=== PATIENT | female | born 1950 | race Caucasian/White ===

== ENCOUNTER → 2017-02-12 | Outpatient (CLI) | payer OTHER ==
--- NOTE | 2017-02-12 15:46 | MAMMOGRAPHY REPORT ---
BILATERAL DIGITAL SCREENING MAMMOGRAM WITH CAD: 02/12/2017 CLINICAL HISTORY: Routine screening. TECHNIQUE: Bilateral CC and MLO views were obtained. Current study was also evaluated with a Compute r Aided Detection (CAD) system. COMPARISON: Comparison is made to exams dated: 02/08/2016 mammogram, 02/03/2015 mammogram, 08/24/2014 m ammogram, 02/11/2014 mammogram, 02/02/2014 mammogram, and 01/29/2013 mammogram - [facility] enter. BREAST COMPOSITION: There are scattered areas of fibroglandular density in both breasts. FINDINGS: There are benign calcifications in both breasts. There are stable asymmetries in the medi al right breast and lateral left breast. No new suspicious mass, architectural distortion or cluster of microcalcifications is seen. IMPRESSION: ACR BI-RADS CATEGORY 2: BENIGN There is no mammographic evidence of malignancy. A 1 year screening mammogram is recommended. The pa tient will receive written notification of the results. Approximately 10% of breast cancers are not detected with mammography. A negative mammographic report should not delay biopsy if a clinically suggestive mass is present. Ashley Ricketts M.D. ay/:02/12/2017 15:23:11 [employer]: Deejay SERRA(R)(Can), [facility] letter sent: Normal 1/2 BI-RADS Code: ACR BI-RADS Category 2: Benign
== END | disposition home or self-care (01) ==
LOC: C.MAMM 08:51
PROVIDERS: ATTEND Internal Medicine
DX: Z12.31 Encounter for screening mammogram for malignant neoplasm of breast (principal)

== ENCOUNTER 2022-12-24 12:18 | Inpatient (IN) ==
[2022-12-24 13:19] LABS: Basophils # (auto) 0.04 K/uL (0-0.2); Basophils % (auto) 0.5 %; Eosinophils # (auto) 0.16 K/uL (0-0.50); Eosinophils % (auto) 1.9 %; Hematocrit (blood only) 47.1 % (37.0-47.0); Hemoglobin 15.6 g/dl (12.0-16.0); Immature Granulocytes # (auto) 0.02 K/uL (0.01-0.20); Immature Granulocytes % (auto) 0.2 %; Lymphocytes # (auto) 1.51 K/uL (1.2-3.4); Lymphocytes % (auto) 17.7 %; Mean Corpuscular Hemoglobin 32.6 pg (25.0-34.0); Mean Corpuscular Hgb Conc 33.1 g/dL (32.0-36.0); Mean Corpuscular Volume 98.3 fL (80.0-100.0); Mean Platelet Volume 10.5 fL (9.4-12.4); Monocytes # (auto) 0.92 K/uL (0.11-0.59); Monocytes % (auto) 10.8 %; Neutrophils % (auto) 68.9 %; Platelet Count 231 K/uL (130-400); RDW Coefficient of Variation 13.5 % (11.5-14.5); RDW Standard Deviation 49.1 fL (36.4-46.3); Red Blood Count 4.79 M/uL (4.20-5.40); White Blood Count 8.55 K/ul (4.8-10.8)
[2022-12-24 13:27] LABS: INR 0.9 (0.9-1.1); Partial Thromboplastin Ratio 0.9; Partial Thromboplastin Time 25.8 Seconds (21.0-31.0); Prothrombin Time 10.4 Seconds (9.0-12.0)
[2022-12-24 13:29] LABS: Albumin Globulin Ratio 1.2 (0.9-2); Albumin Level 4.7 gm/dl (3.4-5.0); BUN Creatinine Ratio 26.9 (10-20); Bilirubin,Total 0.6 mg/dl (0.2-1.0); Calcium 9.7 mg/dl (8.6-10.3); Creatinine Clr Calc Pharmacy 106.8 ml/min; Est GFR (African American) 110.6 ml/min; Est GFR (Non-African American) 95.5 ml/min; Globulin 3.9 gm/dl (2.5-4.0); Potassium 3.8 mmol/L (3.5-5.1); Total Protein 8.6 gm/dl (6.0-8.3)
[2022-12-24 13:34] LABS: Troponin I High Sensitivity 3.2 pg/ml (0-14)
[2022-12-24 16:11] LABS: Allen Test Pos (Pos); Base Excess ABG 6.6 mEq/L (-9-1.8); HCO3 ABG 32 mmol/L (19-24); Oxygen Saturation ABG 98.7 % (90-95); PCO2 ABG 47 mmHg (35-46); PO2 ABG 94 mmHg (80-95); pH ABG 7.44 (7.35-7.45)
--- NOTE | 2022-12-24 16:16 | XRay Report ---
SINGLE VIEW CHEST CLINICAL HISTORY: Dyspnea. FINDINGS: An AP, portable, upright chest radiograph is compared to study dated 06/05/2019. The heart a ppears enlarged and noting atherosclerotic calcification of the thoracic aorta. The pulmonary vascula ture is noncongested. Chronic interstitial thickening is similar to previous.. There is chronic eleva tion of the left hemidiaphragm which is similar to the 06/05/2019 examination. A left pleural effusion is not excluded. There is bibasilar scarring/atelectasis. No airspace consolidation is seen typical for pneumonia. No pneumothorax is seen. The skeletal structures are osteopenic. There are chronic/hea led left-sided rib fractures. IMPRESSION: 1. Cardiomegaly with no acute cardiopulmonary abnormality identified. 2. There is chronic elevation of the left hemidiaphragm. A left pleural effusion is not excluded. Fin dings are unchanged from the 06/05/2019 examination. ACT 112: Negative or not required by law. Electronically signed by: Adrian Ornelas M.D. 12/24/2022 4:13 PM
[2022-12-24] MEDS ORDERED: IOVERSOL 350 MG 125mL Prefilled Syringe IV ONE (17:14)
--- NOTE | 2022-12-24 17:23 | CT Scan Report ---
CT SCAN OF THE BRAIN WITHOUT IV CONTRAST CLINICAL HISTORY: Generalized weakness. COMPARISON STUDY: MRI of the brain dated 06/05/2019. TECHNIQUE: Unenhanced axial CT scan of the brain is performed from the vertex to the skull base. A do se lowering technique was utilized adhering to the principles of ALARA. FINDINGS: Brain parenchyma: There is age-related involutional change noting minimal microangiopathic disease. T here is no hemorrhage, mass effect, or evidence of acute territorial ischemia by CT criteria. Gillis-wh ite matter differentiation is preserved. No extra-axial fluid collection is seen. Ventricles, sulci, cisterns: Prominent secondary to involutional change. Intracranial vasculature: There is atherosclerotic calcification of the cavernous carotid arteries. Calvarium: Unremarkable. Sinuses and mastoids: The visualized paranasal sinuses are clear. The mastoid air cells are well pneu matized. Orbits: The bony orbits are grossly intact. IMPRESSION: There is no hemorrhage, mass effect, or evidence of acute territorial ischemia by CT dony maravilla. ACT 112: Negative or not required by law. Electronically signed by: Adrian Ornelas M.D. 12/24/2022 5:21 PM
--- NOTE | 2022-12-24 18:17 | CT Scan Report ---
CT ANGIOGRAM OF THE CHEST CLINICAL HISTORY: Atypical chest pain. Dyspnea. COMPARISON STUDY: Chest x-ray dated 12/24/2022. TECHNIQUE: Following the IV administration of 116 cc of Optiray 350, CT angiogram of the chest was pe rformed from the upper abdomen to the thoracic inlet utilizing the pulmonary embolus protocol. Images are reviewed in the axial, sagittal, and coronal planes. 3-D MIPS images are created and assessed. I V contrast was administered without complication. A dose lowering technique was utilized adhering to the principles of ALARA. CT DOSE: 1416.52 mGy.cm FINDINGS: Thyroid: Mildly enlarged and heterogeneous. Thoracic aorta: There is moderate atherosclerotic calcification of the thoracic aorta, which is masood l in caliber and demonstrates standard 3-vessel arch anatomy. No dissection is seen. Pulmonary vasculature: The main pulmonary arteries are mildly dilated suggesting pulmonary artery hyp ertension. There are no filling defects identified in main, lobar, or proximal segmental pulmonary br anches to suggest pulmonary embolus. Evaluation of the peripheral branches is degraded by motion keshav fact. Heart: The heart is mildly enlarged and without pericardial effusion. There are coronary artery calci fications. Lungs and pleural spaces: Evaluation of the lung parenchyma is degraded by motion artifact. There is atelectasis of the left lower lung. No airspace consolidation clinical history pneumonia or pleural e ffusion is identified. The trachea and central airways are clear. Scarring/atelectasis is also seen a t the right lung base. There is a 1.3 cm right middle lobe nodule suggested on image #89. Mediastinum: There is no mediastinal lymphadenopathy. Mary: Clear. Axillae: There is no axillary lymphadenopathy. Upper abdomen: There is marked elevation of the left hemidiaphragm versus diaphragmatic herniation, w ith bowel contents filling the majority of the left hemithorax. This is radiographically unchanged da ting back to at least 2020. There is diverticulosis of the visualized left colon. A normal spleen is not identified and there are large splenules in the left upper quadrant. These measure up to 4.5 cm. Skeletal structures: The skeletal structures are osteopenic. No lytic or blastic bony lesions are see n. There is chronic deformity of the left-sided ribs. Arthritic change is noted in the shoulders. The re is a chronic-appearing compression deformity of T11. Spondylotic change is seen in the thoracic sp ine. IMPRESSION: 1. There is no evidence of pulmonary embolus in the main, lobar, or proximal segmental pulmonary tracy lisandra. Evaluation of the peripheral branches is compromised by motion artifact. 2. There is marked elevation of the left hemidiaphragm versus diaphragmatic defect/hernia with abdomi nal contents filling the lower thorax and atelectasis of the left lower lung. This is unchanged datin g back to at least 2019. A normal spleen is not identified, there is deformity of the left-sided ribs , and there may have been previous left lower lobe resection. Correlation with the clinical and surgi marion history will be essential. 3. There is no airspace consolidation typical for pneumonia or pleural effusion. 4. A 1.3 cm right middle lobe nodule is suggested. Follow-up is recommended as per the Fleischner cri teria. See below. 5. Mild cardiomegaly. 6. Additional findings as above. Please refer to below summary of Fleischner criteria recommendations for follow-up of incidental CT n odules (Megan Valentine, Guidelines for management of small pulmonary nodules detected on CT scans: A sta tement from the Fleischner Society, Radiology 237: [phone].) SOLID NODULES Solitary nodule size: <6 mm * low risk patients: no follow-up needed * high risk patients: optional CT at 12 months Solitary nodule size: 6-8 mm * low risk patients: follow-up at 6-12 months, then consider further follow-up at 18-24 months * high risk patients: initial follow-up CT at 6-12 months and then at 18-24 months if no change Solitary nodule size: >8 mm * either low or high risk patients - consider follow-up CT at 3 months, and/or CT-PET, and/or biopsy Multiple nodules size: <6 mm * low risk patients: no routine follow-up * high risk patients: optional CT at 12 months Multiple nodules size: 6-8 mm * low risk patients: follow-up at 3-6 months, then consider further follow-up at 18-24 months * high risk patients: follow-up at 3-6 months, then at 18-24 months if no change Multiple nodules size: >8 mm * low risk patients: follow-up at 3-6 months, then consider further follow-up at 18-24 months * high risk patients: follow-up at 3-6 months, then at 18-24 months if no change Note: newly detected indeterminate nodule in persons 35 years of age or older. * low risk patients: minimal or absent history of smoking and/or other known risk factors * high risk patients: history of smoking or of other known risk factors (e.g. first degree relative with lung cancer, or exposure to asbestos, radon, uranium) * if a nodule up to 8 mm is partly solid or is ground glass further follow-up is required after 24 m onths to exclude possible slow growing adenocarcinoma (KATE) SUBSOLID NODULES Solitary pure ground-glass nodule * nodule size <6 mm - no CT follow-up required * nodule size >=6 mm - follow-up CT at 6-12 months, then every 2 years until 5 years Solitary part-solid nodule * nodule size <6 mm - no CT follow-up required * nodule size >=6 mm - follow-up CT at 3-6 months. If unchanged, and solid component remains <6 mm, then annual follow-up for 5 years Multiple subsolid nodules * nodule size <6 mm - follow-up CT at 3-6 months, consider further follow-up at 2 and 4 years if sta ble * nodule size >=6 mm - follow-up CT at 3-6 months, subsequent management based on the most suspiciou s nodule(s) ACT 112: Positive. There are findings on this exam that require communication between the performing entity and the patient following Patient Test Result Information Act ([place] Act 112) guidelines. Electronically signed by: Adrian Ornelas M.D. 12/24/2022 6:15 PM
--- NOTE | 2022-12-24 18:58 | Emergency Department Note ---
History of Present Illness General Chief complaint: Vertigo Stated complaint: LIGHT HEADED, FATIGUE, NAUSEA Time Seen by Provider: 12/24/22 15:25 History of Present Illness Provider complaint: Dizziness palpitations fatigue Onset (ago): month(s) 1 72-year-old female presents emergency department for dizziness palpitations and fatigue. Patient reports her symptoms are gone for the last month. She reports no chest pain. No headache. No recent travel. No exogenous hormone usage. No hemoptysis. No melena or hematochezia. No abdominal pain. Home Medications Medication Instructions Recorded Confirmed Type albuterol sulfate 90 mcg/actuation 1 - 2 puff inhalation Q6H PRN 06/05/19 History aerosol inhaler (Ventolin HFA) Shortness Of Breath Or Wheezing aspirin 81 mg tablet,delayed 81 mg PO QAM 06/05/19 12/24/22 History release cholecalciferol (vitamin D3) 25 1,000 unit PO QAM 06/05/19 12/24/22 History mcg (1,000 unit) tablet (Vitamin D3) lisinopril 10 0.5 tab PO HS 06/05/19 12/24/22 History mg-hydrochlorothiazide 12.5 mg tablet (Zestoretic) metformin 500 mg tablet 500 mg PO BID 06/05/19 12/24/22 History (Glucophage) simvastatin 40 mg tablet (Zocor) 40 mg PO HS 06/05/19 12/24/22 History venlafaxine 75 mg capsule,extended 75 mg PO QAM 06/05/19 12/24/22 History release 24 hr (Effexor XR) acetaminophen 500 mg tablet 500 mg PO Q6H PRN Pain 07/13/19 12/24/22 History (Tylenol Extra Strength) Allergies Allergy/AdvReac Type Severity Reaction Status Date / Time codeine AdvReac Intermediate Nausea Unverified 07/13/19 14:30 Past Med/Surg History Medical History Diabetes HLD (hyperlipidemia) HTN (hypertension) Family History Other No pertinent family history Social History Smoking Status: Never smoker Preferred Language: Ivorian Feels Safe at Home: Yes Physical Exam Vital Signs Vital Signs - 24 hr 12/24/22 12:35 12/24/22 15:53 12/24/22 16:05 Temperature 36.5 C Temperature Source Temporal Artery Scan Pulse Rate 98 H 91 H Pulse Rate [Apical] 91 H Pulse Rhythm Regular Respiratory Rate 20 16 Respiratory Effort / Characteristics Non-Labored Spontaneous Respiratory Depth Normal Blood Pressure 166/87 H Blood Pressure [Left Arm] 155/74 H Blood Pressure Mean 113 Blood Pressure Mean [Left Arm] 101 Pulse Oximetry 97 85 L Oxygen Delivery Method Room Air Room Air Oxygen Flow Rate Sepsis Recent Fever Within 48 Hours No Sepsis New/Unexplained Change in Mental Status No Sepsis Action Taken by Nursing No Action Required 12/24/22 16:06 Temperature Temperature Source Pulse Rate 90 Pulse Rate [Apical] Pulse Rhythm Respiratory Rate Respiratory Effort / Characteristics Respiratory Depth Blood Pressure Blood Pressure [Left Arm] Blood Pressure Mean Blood Pressure Mean [Left Arm] Pulse Oximetry 97 Oxygen Delivery Method Nasal Cannula Oxygen Flow Rate 3 Sepsis Recent Fever Within 48 Hours Sepsis New/Unexplained Change in Mental Status Sepsis Action Taken by Nursing Physical Exam GENERAL: oriented to person, place, and time. appears well-developed and well- nourished. HENT: Exam performed. - Head: Normocephalic and atraumatic. EYES: Conjunctivae and EOM are normal. Right eye exhibits no discharge. Left eye exhibits no discharge. No scleral icterus. NECK: Normal range of motion. Neck supple. No JVD present. CV: Normal rate, regular rhythm, normal heart sounds and intact distal pulses. There is no peripheral edema. Palpable radial pulses bue. PULM/CHEST: Diminished left-sided breath sounds. ABD: The abdomen is soft. There is no tenderness. NEURO: Motor and sensation grossly intact. SKIN: Skin is warm and dry. He is not diaphoretic. PSYCH: normal mood and affect. Behavior is normal. Judgment and thought content normal. Course Course 1525: The patient was evaluated in room B11B. A complete history and physical exam was performed Cardiac monitoring: An order was placed for continuous cardiac monitoring. The monitor shows a rate of 90 with sinus rhythm interpreted by me 1605: Patient became hypoxic on room air. Supplemental oxygen applied via nasal cannula which improved the patient's oxygen saturation. Chest x-ray reviewed by me shows cardiomegaly with cardiomegaly and a white out potion of the left lower lung. Patient is now stating that she had a surgery done as a child which she is not sure what for if was to help her diaphragm or remove part of her lung. There is no significant change in the chest x-ray from June 05, 2019. Will obtain CTA of the chest to rule out PE given the patient's new onset hypoxia. 183: Vital signs stable on supplemental oxygen via nasal cannula. Labs within normal limits. Imaging shows no infiltrate no PE. Patient will be admitted to the [facility] team for work-up of hypoxia. Spoke with Sharmaine Huynh who stated to admit to Dr. Ye Administered Medications Discontinued Medications Ioversol (Ioversol 350 Mg 125ml Prefilled Syringe) 116 ml IV ONCE ONE Stop: 12/24/22 17:15 Last Admin: 12/24/22 17:14 Dose: 116 ml Documented By: MAURA Critical Care Time Critical Care Time: Yes Total Critical Care Time: 45 I have personally spent greater than 45 minutes of critical care time in the direct management of this patient. This includes bedside care, interpretation of diagnostic studies, and testing, discussion with consultants, patient, and family members, and other required patient management activities. This 45 minutes is in excess of all separately billable procedures. Medical Decision Making Laboratory Data Attestation: I reviewed the patient's lab results. 12/24/22 12:55 12/24/22 12:55 Lab Results 12/24/22 12/24/22 12/24/22 Range/Units 12:55 12:55 12:55 WBC 8.55 (4.8-10.8) K/ul RBC 4.79 (4.20-5.40) M/uL Hgb 15.6 (12.0-16.0) g/dl Hct 47.1 H (37.0-47.0) % MCV 98.3 (80.0-100.0) fL MCH 32.6 (25.0-34.0) pg MCHC 33.1 (32.0-36.0) g/dL RDW Std Deviation 49.1 H (36.4-46.3) fL RDW Coeff of Hussein 13.5 (11.5-14.5) % Plt Count 231 (130-400) K/uL MPV 10.5 (9.4-12.4) fL Immature Gran % (Auto) 0.2 % Neut % (Auto) 68.9 % Lymph % (Auto) 17.7 % [place] % (Auto) 10.8 % Eos % (Auto) 1.9 % Baso % (Auto) 0.5 % Neut # (Auto) 5.90 (1.40-6.50) K/uL Lymph # (Auto) 1.51 (1.2-3.4) K/uL [place] # (Auto) 0.92 H (0.11-0.59) K/uL Eos # (Auto) 0.16 (0-0.50) K/uL Baso # (Auto) 0.04 (0-0.2) K/uL Immature Gran # (Auto) 0.02 (0.01-0.20) K/uL PT 10.4 (9.0-12.0) Seconds INR 0.9 (0.9-1.1) APTT 25.8 (21.0-31.0) Seconds PTT Ratio 0.9 ABG pH (7.35-7.45) ABG pCO2 (35-46) mmHg ABG pO2 (80-95) mmHg ABG HCO3 (19-24) mmol/L ABG O2 Saturation (90-95) % ABG Base Excess (-9-1.8) mEq/L Jean-Claude Test (Pos) Oxygen Given Sodium 140 (136-145) mmol/L Potassium 3.8 (3.5-5.1) mmol/L Chloride 102 (98-107) mmol/L Carbon Dioxide 30 (21-32) mmol/L Anion Gap 8 (3-11) BUN 14 (6-23) mg/dl Creatinine 0.52 L (0.6-1.2) mg/dl Est Cr Clr Drug Dosing 106.8 ml/min Est GFR ( Amer) 110.6 ml/min Est GFR (Non-Af Amer) 95.5 ml/min BUN/Creatinine Ratio 26.9 H (10-20) Glucose 100 H (70-99(Fasting)) mg/dl Calcium 9.7 (8.6-10.3) mg/dl Total Bilirubin 0.6 (0.2-1.0) mg/dl AST 18 (13-39) U/L ALT 12 (7-52) U/L Alkaline Phosphatase 46 (34-104) U/L Troponin I High Sens 3.2 (0-14) pg/ml Total Protein 8.6 H (6.0-8.3) gm/dl Albumin 4.7 (3.4-5.0) gm/dl Globulin 3.9 (2.5-4.0) gm/dl Albumin/Globulin Ratio 1.2 (0.9-2) SARS-CoV-2, RNA, NAAT (NEGATIVE) 12/24/22 12/24/22 Range/Units 15:55 Unknown WBC (4.8-10.8) K/ul RBC (4.20-5.40) M/uL Hgb (12.0-16.0) g/dl Hct (37.0-47.0) % MCV (80.0-100.0) fL MCH (25.0-34.0) pg MCHC (32.0-36.0) g/dL RDW Std Deviation (36.4-46.3) fL RDW Coeff of Hussein (11.5-14.5) % Plt Count (130-400) K/uL MPV (9.4-12.4) fL Immature Gran % (Auto) % Neut % (Auto) % Lymph % (Auto) % [place] % (Auto) % Eos % (Auto) % Baso % (Auto) % Neut # (Auto) (1.40-6.50) K/uL Lymph # (Auto) (1.2-3.4) K/uL [place] # (Auto) (0.11-0.59) K/uL Eos # (Auto) (0-0.50) K/uL Baso # (Auto) (0-0.2) K/uL Immature Gran # (Auto) (0.01-0.20) K/uL PT (9.0-12.0) Seconds INR (0.9-1.1) APTT (21.0-31.0) Seconds PTT Ratio ABG pH 7.44 (7.35-7.45) ABG pCO2 47 H (35-46) mmHg ABG pO2 94 (80-95) mmHg ABG HCO3 32 H (19-24) mmol/L ABG O2 Saturation 98.7 H (90-95) % ABG Base Excess 6.6 H (-9-1.8) mEq/L Jean-Claude Test Pos (Pos) Oxygen Given 4L Sodium (136-145) mmol/L Potassium (3.5-5.1) mmol/L Chloride (98-107) mmol/L Carbon Dioxide (21-32) mmol/L Anion Gap (3-11) BUN (6-23) mg/dl Creatinine (0.6-1.2) mg/dl Est Cr Clr Drug Dosing ml/min Est GFR ( Amer) ml/min Est GFR (Non-Af Amer) ml/min BUN/Creatinine Ratio (10-20) Glucose (70-99(Fasting)) mg/dl Calcium (8.6-10.3) mg/dl Total Bilirubin (0.2-1.0) mg/dl AST (13-39) U/L ALT (7-52) U/L Alkaline Phosphatase (34-104) U/L Troponin I High Sens (0-14) pg/ml Total Protein (6.0-8.3) gm/dl Albumin (3.4-5.0) gm/dl Globulin (2.5-4.0) gm/dl Albumin/Globulin Ratio (0.9-2) SARS-CoV-2, RNA, NAAT NEGATIVE (NEGATIVE) Imaging Data Attestation: I personally reviewed and interpreted this imaging study as follows: My Impression: Chest x-ray reviewed by me shows cardiomegaly with cardiomegaly and a white out potion of the left lower lung. There is no significant change in the chest x- ray from June 05, 2019. Radiologist's Impression: Chest CTA 12/24/22 15:42 CT ANGIOGRAM OF THE CHEST CLINICAL HISTORY: Atypical chest pain. Dyspnea. COMPARISON STUDY: Chest x-ray dated 12/24/2022. TECHNIQUE: Following the IV administration of 116 cc of Optiray 350, CT angiog jacinta of the chest was performed from the upper abdomen to the thoracic inlet utilizing the pulmonary embolus protocol. Images are reviewed in the axial, sagittal, and coronal planes. 3-D MIPS images are created and assessed. IV contrast was administered without complication. A dose lowering technique was utilized adhering to the principles of ALARA. CT DOSE: 1416.52 mGy.cm FINDINGS: Thyroid: Mildly enlarged and heterogeneous. Thoracic aorta: There is moderate atherosclerotic calcification of the thoracic aorta, which is normal in caliber and demonstrates standard 3-vessel arch anatomy. No dissection is seen. Pulmonary vasculature: The main pulmonary arteries are mildly dilated suggesting pulmonary artery hypertension. There are no filling defects identified in main, lobar, or proximal segmental pulmonary branches to suggest pulmonary embolus. Evaluation of the peripheral branches is degraded by motion artifact. Heart: The heart is mildly enlarged and without pericardial effusion. There are coronary artery calcifications. Lungs and pleural spaces: Evaluation of the lung parenchyma is degraded by motion artifact. There is atelectasis of the left lower lung. No airspace consolidation clinical history pneumonia or pleural effusion is identified. The trachea and central airways are clear. Scarring/atelectasis is also seen at the right lung base. There is a 1.3 cm right middle lobe nodule suggested on image #89. Mediastinum: There is no mediastinal lymphadenopathy. Mary: Clear. Axillae: There is no axillary lymphadenopathy. Upper abdomen: There is marked elevation of the left hemidiaphragm versus diaphragmatic herniation, with bowel contents filling the majority of the left hemithorax. This is radiographically unchanged dating back to at least 2019. There is diverticulosis of the visualized left colon. A normal spleen is not identified and there are large splenules in the left upper quadrant. These measure up to 4.5 cm. Skeletal structures: The skeletal structures are osteopenic. No lytic or blastic bony lesions are seen. There is chronic deformity of the left-sided ribs. Arthritic change is noted in the shoulders. There is a chronic-appearing compression deformity of T11. Spondylotic change is seen in the thoracic spine. IMPRESSION: 1. There is no evidence of pulmonary embolus in the main, lobar, or proximal segmental pulmonary arteries. Evaluation of the peripheral branches is compro mised by motion artifact. 2. There is marked elevation of the left hemidiaphragm versus diaphragmatic defect/hernia with abdominal contents filling the lower thorax and atelectasis of the left lower lung. This is unchanged dating back to at least 2019. A normal spleen is not identified, there is deformity of the left-sided ribs, and there may have been previous left lower lobe resection. Correlation with the clinical and surgical history will be essential. 3. There is no airspace consolidation typical for pneumonia or pleural effusion. 4. A 1.3 cm right middle lobe nodule is suggested. Follow-up is recommended as p er the Fleischner criteria. See below. 5. Mild cardiomegaly. 6. Additional findings as above. Please refer to below summary of Fleischner criteria recommendations for follow- up of incidental CT nodules (Megan Valentine, Guidelines for management of small pulmonary nodules detected on CT scans: A statement from the Fleischner Society, Radiology 237: [phone].) SOLID NODULES Solitary nodule size: <6 mm * low risk patients: no follow-up needed * high risk patients: optional CT at 12 months Solitary nodule size: 6-8 mm * low risk patients: follow-up at 6-12 months, then consider further follow-up at 18-24 months * high risk patients: initial follow-up CT at 6-12 months and then at 18-24 months if no change Solitary nodule size: >8 mm * either low or high risk patients - consider follow-up CT at 3 months, and/or CT-PET, and/or biopsy Multiple nodules size: <6 mm * low risk patients: no routine follow-up * high risk patients: optional CT at 12 months Multiple nodules size: 6-8 mm * low risk patients: follow-up at 3-6 months, then consider further follow-up at 18-24 months * high risk patients: follow-up at 3-6 months, then at 18-24 months if no change Multiple nodules size: >8 mm * low risk patients: follow-up at 3-6 months, then consider further follow-up at 18-24 months * high risk patients: follow-up at 3-6 months, then at 18-24 months if no change Note: newly detected indeterminate nodule in persons 35 years of age or older. * low risk patients: minimal or absent history of smoking and/or other known risk factors * high risk patients: history of smoking or of other known risk factors (e.g. first degree relative with lung cancer, or exposure to asbestos, radon, uranium) * if a nodule up to 8 mm is partly solid or is ground glass further follow-up is required after 24 months to exclude possible slow growing adenocarcinoma (KATE) SUBSOLID NODULES Solitary pure ground-glass nodule * nodule size <6 mm - no CT follow-up required * nodule size >=6 mm - follow-up CT at 6-12 months, then every 2 years until 5 years Solitary part-solid nodule * nodule size <6 mm - no CT follow-up required * nodule size >=6 mm - follow-up CT at 3-6 months. If unchanged, and solid component remains <6 mm, then annual follow-up for 5 years Multiple subsolid nodules * nodule size <6 mm - follow-up CT at 3-6 months, consider further follow-up at 2 and 4 years if stable * nodule size >=6 mm - follow-up CT at 3-6 months, subsequent management based on the most suspicious nodule(s) ACT 112: Positive. There are findings on this exam that require communication between the performing entity and the patient following Patient Test Result Information Act ([place] Act 112) guidelines. Electronically signed by: Adrian Ornelas M.D. 12/24/2022 6:15 PM Chest X-Ray 12/24/22 15:42 SINGLE VIEW CHEST CLINICAL HISTORY: Dyspnea. FINDINGS: An AP, portable, upright chest radiograph is compared to study dated 06/05/2019. The heart appears enlarged and noting atherosclerotic calcification of the thoracic aorta. The pulmonary vasculature is noncongested. Chronic interstitial thickening is similar to previous.. There is chronic elevation of the left hemidiaphragm which is similar to the 06/05/2019 examination. A left pleural effusion is not excluded. There is bibasilar scarring/atelectasis. No airspace consolidation is seen typical for pneumonia. No pneumothorax is seen. The skeletal structures are osteopenic. There are chronic/healed left-sided rib fractures. IMPRESSION: 1. Cardiomegaly with no acute cardiopulmonary abnormality identified. 2. There is chronic elevation of the left hemidiaphragm. A left pleural effusion is not excluded. Findings are unchanged from the 06/05/2019 examination. ACT 112: Negative or not required by law. Electronically signed by: Adrian Ornelas M.D. 12/24/2022 4:[address] 12/24/22 15:42 CT SCAN OF THE BRAIN WITHOUT IV CONTRAST CLINICAL HISTORY: Generalized weakness. COMPARISON STUDY: MRI of the brain dated 06/05/2019. TECHNIQUE: Unenhanced axial CT scan of the brain is performed from the vertex to the skull base. A dose lowering technique was utilized adhering to the principles of ALARA. FINDINGS: Brain parenchyma: There is age-related involutional change noting minimal microangiopathic disease. There is no hemorrhage, mass effect, or evidence of acute territorial ischemia by CT criteria. Gillis-white matter differentiation is preserved. No extra-axial fluid collection is seen. Ventricles, sulci, cisterns: Prominent secondary to involutional change. Intracranial vasculature: There is atherosclerotic calcification of the cavernous carotid arteries. Calvarium: Unremarkable. Sinuses and mastoids: The visualized paranasal sinuses are clear. The mastoid air cells are well pneumatized. Orbits: The bony orbits are grossly intact. IMPRESSION: There is no hemorrhage, mass effect, or evidence of acute territorial ischemia by CT criteria. ACT 112: Negative or not required by law. Electronically signed by: Adrian Ornelas M.D. 12/24/2022 5:21 PM ECG Data Attestation: I personally reviewed and interpreted this ECG as follows: Rate (beats per minute): 97 Rhythm: + normal sinus ECG Intervals/blocks: + Normal OK and + Normal QT-c ECG ST segments: + Normal ST segments Additional Comments: QRS 78 MDM Narrative 1525: The patient was evaluated in room B11B. A complete history and physical exam was performed Cardiac monitoring: An order was placed for continuous cardiac monitoring. The monitor shows a rate of 90 with sinus rhythm interpreted by me 1605: Patient became hypoxic on room air. Supplemental oxygen applied via nasal cannula which improved the patient's oxygen saturation. Chest x-ray reviewed by me shows cardiomegaly with cardiomegaly and a white out potion of the left lower lung. Patient is now stating that she had a surgery done as a child which she is not sure what for if was to help her diaphragm or remove part of her lung. There is no significant change in the chest x-ray from June 05, 2019. Will obtain CTA of the chest to rule out PE given the patient's new onset hypoxia. 1835: Vital signs stable on supplemental oxygen via nasal cannula. Labs within normal limits. Imaging shows no infiltrate no PE. Patient will be admitted to the [facility] team for work-up of hypoxia. Spoke with Sharmaine Huynh who stated to admit to Dr. Ye Impression & Plan Hypoxia Discharge Plan Visit Data Chief Complaint: Vertigo Stated Complaint: LIGHT HEADED, FATIGUE, NAUSEA ED Provider: Richi Siddiqui Discharge Problem: Hypoxia Patient Disposition: Admitted As Inpatient Forms Stand Alone Forms: [facility] Prescriptions Prescriptions: No Action metformin [Glucophage] 500 mg tablet 500 mg PO BID venlafaxine [Effexor XR] 75 mg capsule,extended release 24hr 75 mg PO QAM aspirin 81 mg Tablet,Delayed Release (Dr/Ec) 81 mg PO QAM simvastatin [Zocor] 40 mg tablet 40 mg PO HS lisinopril-hydrochlorothiazide [Zestoretic] 10-12.5 mg tablet 0.5 tab PO HS albuterol sulfate [Ventolin HFA] 90 mcg/actuation HFA aerosol inhaler 1 - 2 puff INHALATION Q6H PRN (Reason: Shortness Of Breath Or Wheezing) cholecalciferol (vitamin D3) [Vitamin D3] 25 mcg (1,000 unit) Tablet 1,000 unit PO QAM acetaminophen [Tylenol Extra Strength] 500 mg Tablet 500 mg PO Q6H PRN (Reason: Pain) Referrals Referrals: Solitario Grant MD [Primary Care Provider] -
--- NOTE | 2022-12-24 19:18 | History & Physical Report ---
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 Noted to be hypoxic at 85% in ED, now 95% on 3L NC No history of asthma, COPD, non-smoker. 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 Evaluation of the peripheral branches is compromised by motion artifact. * There is marked elevation of the left hemidiaphragm versus diaphragmatic defect/hernia with abdominal contents filling the lower thorax and atelectasis of the left lower lung. This is unchanged dating back to at least 2019 * A 1.3 cm right middle lobe nodule is suggested. Follow-up is recommended as per the Fleischner criteria. See below. 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 Ye. Please see addendum. 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 Feels lightheaded with positional change, specifically when she bends down to reach for something. Is relieved at rest. Associated with nausea but no vomiting. No room spinning. History of vertigo in the past but that felt more like acute episodes and this feels more ongoing. Having light sensitivity more since cataracts surgery in 2020 but denies any other eye symptoms like decreased vision or double vision. Denies any previous diagnosis of hypoxia or chronic lung conditions such as asthma or COPD. Lifelong non-smoker. Recent O2 levels at doctor visits were 88-92%. History of operation on diaphragm is a 6-week-old but does not know additional information. Denies any issues with low oxygen since then. No fever, chills, recent illness, headache, chest pain, shortness of breath, wheezing, vomiting, abdominal pain, dysuria, diarrhea or constipation. Allergies Allergy/AdvReac Type Severity Reaction Status Date / Time codeine AdvReac Intermediate Nausea Unverified 07/13/19 14:30 Home Medications Medication Instructions Recorded Confirmed Type albuterol sulfate 90 mcg/actuation 1 - 2 puff inhalation Q6H PRN 06/05/19 12/24/22 History aerosol inhaler (Ventolin HFA) Shortness Of Breath Or Wheezing aspirin 81 mg tablet,delayed 81 mg PO QAM 06/05/19 12/24/22 History release cholecalciferol (vitamin D3) 25 1,000 unit PO QAM 06/05/19 12/24/22 History mcg (1,000 unit) tablet (Vitamin D3) lisinopril 10 0.5 tab PO HS 06/05/19 12/24/22 History mg-hydrochlorothiazide 12.5 mg tablet (Zestoretic) metformin 500 mg tablet 500 mg PO BID 06/05/19 12/24/22 History (Glucophage) simvastatin 40 mg tablet (Zocor) 40 mg PO HS 06/05/19 12/24/22 History venlafaxine 75 mg capsule,extended 75 mg PO QAM 06/05/19 12/24/22 History release 24 hr (Effexor XR) acetaminophen 500 mg tablet 500 mg PO Q6H PRN Pain 07/13/19 12/24/22 History (Tylenol Extra Strength) Past Med/Surg History Medical History (Updated 12/24/22 @ 20:10 by Sharmaine Huynh PA-C) Anxiety Chronically elevated hemidiaphragm DM (diabetes mellitus), type 2 History of gastritis HLD (hyperlipidemia) HTN (hypertension) Surgical History (Updated 12/24/22 @ 20:05 by Sharmaine Huynh PA-C) History of congenital diaphragmatic hernia s/p repair at 6 wks old History of mandibular surgery Family History (Updated 12/24/22 @ 20:05 by Sharmaine Huynh PA-C) Other Diabetes Hypertension Social History Smoking Status: Never smoker Hx Alcohol Use: No Hx Substance Use: No Preferred Language: Spanish Communication Ability: Effective Rn Occupational Required: No Beliefs That Will Affect Care: None Current Living Situation: Spouse Other Information That Helps Us Care for You: No Feels Safe at Home: Yes Safety Concerns: Feels Safe At This Time Review of Systems Review of Systems: At least ten systems reviewed and negative except as noted in the HPI. Physical Exam Physical Exam: General Appearance: WD/WN, vitals as above, NAD, sitting up in bed, pleasant, conversing easily Head: normocephalic, atraumatic Eyes: normal inspection, PERRL, conjunctivae normal, anicteric sclerae ENT: external ear and nose normal, oropharynx normal Neck: normal visual inspection, trachea midline, no thyromegaly Respiratory: normal respiratory effort, decreased breath sounds bilateral bases L>R,no wheeze, rhonchi. No accessory muscle use Cardiovascular: regular rate, rhythm, no murmur, normal peripheral pulses, no BLE edema. Vessels: no JVD Chest: normal inspection of chest Abdomen/GI: normal bowel sounds, soft, nontender, no hepatosplenomegaly Extremities/Musculoskeletal: no cyanosis or clubbing, extremities motor strength 5/5 Neurologic: PERRL, EOMI, accommodation nl, no face palsy, no dysarthria, CN's II-XI intact bilaterally and moves all extremities Psychiatric: A+Ox3, euthymic affect Skin: no rashes, normal color, warm/dry Results & Data Results & Data Vital Signs (Past 12 Hours) Vital Signs Temp Pulse Pulse Resp BP BP Pulse Ox 12/24/22 19:03 84 20 147/81 H 95 12/24/22 16:06 90 97 12/24/22 16:05 91 H 16 155/74 H 85 L 12/24/22 15:53 91 H 12/24/22 12:35 36.5 C 98 H 20 166/87 H 97 O2 Del Method O2 Flow Rate 12/24/22 19:03 Nasal Cannula 3 12/24/22 16:06 Nasal Cannula 3 12/24/22 16:05 Room Air 12/24/22 15:53 12/24/22 12:35 Room Air Laboratory Results Short CBC 12/24/22 Range/Units 12:55 WBC 8.55 (4.8-10.8) K/ul Hgb 15.6 (12.0-16.0) g/dl Hct 47.1 H (37.0-47.0) % Plt Count 231 (130-400) K/uL BMP 12/24/22 12:55 Sodium 140 Potassium 3.8 Chloride 102 Carbon Dioxide 30 BUN 14 Creatinine 0.52 L Glucose 100 H Calcium 9.7 Liver Function 12/24/22 Range/Units 12:55 Total Bilirubin 0.6 (0.2-1.0) mg/dl AST 18 (13-39) U/L ALT 12 (7-52) U/L Alkaline Phosphatase 46 (34-104) U/L Albumin 4.7 (3.4-5.0) gm/dl Diagnostic Findings Chest CTA 12/24/22 15:42 CT ANGIOGRAM OF THE CHEST CLINICAL HISTORY: Atypical chest pain. Dyspnea. COMPARISON STUDY: Chest x-ray dated 12/24/2022. TECHNIQUE: Following the IV administration of 116 cc of Optiray 350, CT angiogram of the chest was performed from the upper abdomen to the thoracic inlet utilizing the pulmonary embolus protocol. Images are reviewed in the axial, sagittal, and coronal planes. 3-D MIPS images are created and assessed. IV contrast was administered without complication. A dose lowering technique was utilized adhering to the principles of ALARA. CT DOSE: 1416.52 mGy.cm FINDINGS: Thyroid: Mildly enlarged and heterogeneous. Thoracic aorta: There is moderate atherosclerotic calcification of the thoracic aorta, which is normal in caliber and demonstrates standard 3-vessel arch anatomy. No dissection is seen. Pulmonary vasculature: The main pulmonary arteries are mildly dilated suggesting pulmonary artery hypertension. There are no filling defects identified in main, lobar, or proximal segmental pulmonary branches to suggest pulmonary embolus. Evaluation of the peripheral branches is degraded by motion artifact. Heart: The heart is mildly enlarged and without pericardial effusion. There are coronary artery calcifications. Lungs and pleural spaces: Evaluation of the lung parenchyma is degraded by motion artifact. There is atelectasis of the left lower lung. No airspace consolidation clinical history pneumonia or pleural effusion is identified. The trachea and central airways are clear. Scarring/atelectasis is also seen at the right lung base. There is a 1.3 cm right middle lobe nodule suggested on image #89. Mediastinum: There is no mediastinal lymphadenopathy. Mary: Clear. Axillae: There is no axillary lymphadenopathy. Upper abdomen: There is marked elevation of the left hemidiaphragm versus diaphragmatic herniation, with bowel contents filling the majority of the left hemithorax. This is radiographically unchanged dating back to at least 2019. There is diverticulosis of the visualized left colon. A normal spleen is not id entified and there are large splenules in the left upper quadrant. These measure up to 4.5 cm. Skeletal structures: The skeletal structures are osteopenic. No lytic or blastic bony lesions are seen. There is chronic deformity of the left-sided ribs. Arthritic change is noted in the shoulders. There is a chronic-appearing compression deformity of T11. Spondylotic change is seen in the thoracic spine. IMPRESSION: 1. There is no evidence of pulmonary embolus in the main, lobar, or proximal segmental pulmonary arteries. Evaluation of the peripheral branches is compromised by motion artifact. 2. There is marked elevation of the left hemidiaphragm versus diaphragmatic defect/hernia with abdominal contents filling the lower thorax and atelectasis of the left lower lung. This is unchanged dating back to at least 2020. A normal spleen is not identified, there is deformity of the left-sided ribs, and there may have been previous left lower lobe resection. Correlation with the clinical and surgical history will be essential. 3. There is no airspace consolidation typical for pneumonia or pleural effusion. 4. A 1.3 cm right middle lobe nodule is suggested. Follow-up is recommended as per the Fleischner criteria. See below. 5. Mild cardiomegaly. 6. Additional findings as above. Please refer to below summary of Fleischner criteria recommendations for follow- up of incidental CT nodules (Megan Valentine, Guidelines for management of small pulmonary nodules detected on CT scans: A statement from the Fleischner Society, Radiology 237: [phone].) SOLID NODULES Solitary nodule size: <6 mm * low risk patients: no follow-up needed * high risk patients: optional CT at 12 months Solitary nodule size: 6-8 mm * low risk patients: follow-up at 6-12 months, then consider further follow-up at 18-24 months * high risk patients: initial follow-up CT at 6-12 months and then at 18-24 months if no change Solitary nodule size: >8 mm * either low or high risk patients - consider follow-up CT at 3 months, and/or CT-PET, and/or biopsy Multiple nodules size: <6 mm * low risk patients: no routine follow-up * high risk patients: optional CT at 12 months Multiple nodules size: 6-8 mm * low risk patients: follow-up at 3-6 months, then consider further follow-up at 18-24 months * high risk patients: follow-up at 3-6 months, then at 18-24 months if no change Multiple nodules size: >8 mm * low risk patients: follow-up at 3-6 months, then consider further follow-up at 18-24 months * high risk patients: follow-up at 3-6 months, then at 18-24 months if no change Note: newly detected indeterminate nodule in persons 35 years of age or older. * low risk patients: minimal or absent history of smoking and/or other known risk factors * high risk patients: history of smoking or of other known risk factors (e.g. first degree relative with lung cancer, or exposure to asbestos, radon, uranium) * if a nodule up to 8 mm is partly solid or is ground glass further follow-up is required after 24 months to exclude possible slow growing adenocarcinoma (KATE) SUBSOLID NODULES Solitary pure ground-glass nodule * nodule size <6 mm - no CT follow-up required * nodule size >=6 mm - follow-up CT at 6-12 months, then every 2 years until 5 years Solitary part-solid nodule * nodule size <6 mm - no CT follow-up required * nodule size >=6 mm - follow-up CT at 3-6 months. If unchanged, and solid component remains <6 mm, then annual follow-up for 5 years Multiple subsolid nodules * nodule size <6 mm - follow-up CT at 3-6 months, consider further follow-up at 2 and 4 years if stable * nodule size >=6 mm - follow-up CT at 3-6 months, subsequent management based on the most suspicious nodule(s) ACT 112: Positive. There are findings on this exam that require communication between the performing entity and the patient following Patient Test Result Information Act ([place] Act 112) guidelines. Electronically signed by: Adrian Ornelas M.D. 12/24/2022 6:15 PM Chest X-Ray 12/24/22 15:42 SINGLE VIEW CHEST CLINICAL HISTORY: Dyspnea. FINDINGS: An AP, portable, upright chest radiograph is compared to study dated 06/05/2019. The heart appears enlarged and noting atherosclerotic calcification of the thoracic aorta. The pulmonary vasculature is noncongested. Chronic interstitial thickening is similar to previous.. There is chronic elevation of the left hemidiaphragm which is similar to the 06/05/2019 examination. A left pleural effusion is not excluded. There is bibasilar scarring/atelectasis. No airspace consolidation is seen typical for pneumonia. No pneumothorax is seen. The skeletal structures are osteopenic. There are chronic/healed left-sided rib fractures. IMPRESSION: 1. Cardiomegaly with no acute cardiopulmonary abnormality identified. 2. There is chronic elevation of the left hemidiaphragm. A left pleural effusion is not excluded. Findings are unchanged from the 06/05/2019 examination. ACT 112: Negative or not required by law. Electronically signed by: Adrian Ornelas M.D. 12/24/2022 4:[address] 12/24/22 15:42 CT SCAN OF THE BRAIN WITHOUT IV CONTRAST CLINICAL HISTORY: Generalized weakness. COMPARISON STUDY: MRI of the brain dated 06/05/2019. TECHNIQUE: Unenhanced axial CT scan of the brain is performed from the vertex to the skull base. A dose lowering technique was utilized adhering to the principles of ALARA. FINDINGS: Brain parenchyma: There is age-related involutional change noting minimal microangiopathic disease. There is no hemorrhage, mass effect, or evidence of acute territorial ischemia by CT criteria. Gillis-white matter differentiation is preserved. No extra-axial fluid collection is seen. Ventricles, sulci, cisterns: Prominent secondary to involutional change. Intracranial vasculature: There is atherosclerotic calcification of the cavernous carotid arteries. Calvarium: Unremarkable. Sinuses and mastoids: The visualized paranasal sinuses are clear. The mastoid air cells are well pneumatized. Orbits: The bony orbits are grossly intact. IMPRESSION: There is no hemorrhage, mass effect, or evidence of acute territorial ischemia by CT criteria. ACT 112: Negative or not required by law. Electronically signed by: Adrian Ornelas M.D. 12/24/2022 5:21 PM ECG Additional Comments: EKG reviewed: Normal sinus rhythm Left axis deviation Abnormal ECG When compared with ECG of 05-JUN-2019 11:16, No significant change was found. Supervising Physician Co-Signing Physician Notes Care coordinated with Sharmaine Huynh PA-C. Agree with above note. Patient seen and examined. Please refer to her notes for full details. Vital signs reviewed. Physical exam: General exam: Alert and oriented. Not in acute distress. CVS: S1 and S2 heard, regular rate and rhythm, no murmurs. RS: Clear to auscultation, no wheezing or crackles. ABD: Soft, bowel sounds present, nontender, no distention. CRYSTAL CUTTER: Nonfocal. EXT: No edema, no erythema. Labs: Reviewed. Assessment and plan: 72y F Presents with ongoing lightheadedness since about a month. Mostly when she bends down.Sometimes imbalance. In [facility] found to be hypoxic on room air.Placed on oxygen. Seems comfortable. Afebrile. No cough. Ct head ok. CTA chest no acute findings.ABG and labs ok. Will follow echo. vitamin b12 levels. Lightheadedness can do further workup with cta head and neck..If hypoxic persist can consider pulmonary consult. Other diagnosis and plan of care as per Sharmaine Huynh PA-C.. Azam diamond MD.
[2022-12-24] MEDS ORDERED: DEXTROSE 50% 50 ML SYRINGE IV PRN (21:12)
[2022-12-24] MEDS ORDERED: CARBOHYDRATES FOR HYPOGLYCEMIA PO PRN (21:12)
[2022-12-24] MEDS ORDERED: LISINOPRIL/HCTZ 10/12.5MG TAB PO SCH (21:12)
[2022-12-24] MEDS ORDERED: ONDANSETRON INJ 2 MG/ML 2 ML VIAL IV PRN (21:12)
[2022-12-24] MEDS ORDERED: GLUCAGON FOR INJ 1 MG VIAL SQ PRN (21:12)
[2022-12-24] MEDS ORDERED: GLUCOSE 40% GEL 15 GM TUBE PO PRN (21:12)
[2022-12-24] MEDS ORDERED: GLUCOSE 10 TAB/TUBE PO PRN (21:12)
[2022-12-24] MEDS ORDERED: POLYETHYLENE (MIRALAX) 17 GM PACK PO PRN (21:12)
[2022-12-24] MEDS ORDERED: ACETAMINOPHEN 325 MG TAB PO PRN (21:12)
[2022-12-24] MEDS ORDERED: SIMVASTATIN 40 MG TAB PO SCH (21:12)
[2022-12-24] MEDS ORDERED: ENOXAPARIN INJ 40 MG/0.4 ML SYR SQ SCH (21:12)
[2022-12-24] MEDS ORDERED: ALBUTEROL HFA 8 GM INHALER INH PRN (21:12)
[2022-12-24] MEDS: INSULIN ASPART PER UNIT CHARGE SC SCH (22:17)
--- NOTE | 2022-12-25 06:05 | Electrocardiogram Report ---
Test Reason : Blood Pressure : / mmHG Vent. Rate : 097 BPM Atrial Rate : 097 BPM P-R Int : 116 ms QRS Dur : 078 ms QT Int : 324 ms P-R-T Axes : 047 -49 066 degrees QTc Int : 411 ms Normal sinus rhythm Left axis deviation Abnormal ECG When compared with ECG of 05-JUN-2019 11:16, No significant change was found Confirmed by Elton Tsang ([id number]) on 12/25/2022 6:05:07 AM Referred By: Confirmed By:Elton Tsang
[2022-12-25 07:13] LABS: Hematocrit (blood only) 43.8 % (37.0-47.0); Hemoglobin 14.4 g/dl (12.0-16.0); Mean Corpuscular Hemoglobin 32.3 pg (25.0-34.0); Mean Corpuscular Hgb Conc 32.9 g/dL (32.0-36.0); Mean Corpuscular Volume 98.2 fL (80.0-100.0); Mean Platelet Volume 10.3 fL (9.4-12.4); Platelet Count 217 K/uL (130-400); RDW Coefficient of Variation 13.7 % (11.5-14.5); RDW Standard Deviation 49.8 fL (36.4-46.3); Red Blood Count 4.46 M/uL (4.20-5.40); White Blood Count 7.74 K/ul (4.8-10.8)
[2022-12-25 07:41] LABS: Calcium 9.2 mg/dl (8.6-10.3); Creatinine Clr Calc Pharmacy 110.8 ml/min; Est GFR (African American) 112.1 ml/min; Est GFR (Non-African American) 96.7 ml/min; Potassium 3.8 mmol/L (3.5-5.1)
[2022-12-25] MEDS ORDERED: VENLAFAXINE HCL XR 75 MG CAPXR PO SCH (09:00)
[2022-12-25] MEDS ORDERED: CHOLECALCIFEROL 1,000 UNITS 25 MCG TAB PO SCH (09:00)
[2022-12-25] MEDS ORDERED: ASPIRIN 81 MG ECTAB PO SCH (09:00)
[2022-12-25] MEDS: INSULIN ASPART PER UNIT CHARGE SC SCH ×2 (09:42→13:00)
--- NOTE | 2022-12-25 14:27 | Hospitalist Progress Note ---
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 Noted to be hypoxic at 85% in ED, now 95% on 3L NC. No history of asthma, COPD, non-smoker. 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 Evaluation of the peripheral branches is co mpromised by motion artifact. There is marked elevation of the left hemidiaphragm versus diaphragmatic defect/hernia with abdominal contents filling the lower thorax and atelectasis of the left lower lung. This is unchanged dating back to at least 2019. A normal spleen is not identified, there is deformity of the left-sided ribs, and there may have been previous left lower lobe resection. Correlation with the clinical and surgical history will be essential. There is no airspace consolidation typical for pneumonia or pleural effusion. A 1.3 cm right middle lobe nodule is suggested. Follow-up is recommended as per the Fleischner criteria. See below. Mild cardiomegaly. --CT Head:There is no hemorrhage, mass effect, or evidence of acute territorial ischemia by CT criteria. --Normal Orthostatics --ECHO: EF 60 to 60%. No regional wall motion abnormality. Normal diastolic function. 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 BSG AC HS (7) Anxiety: Plan: Continue venlafaxine DVT Px: SQ Lovenox Code status: FULL CODE Admission and Anticipated Discharge Date Admission Date: December 24, 2022 Subjective Patient is seen and examined at bedside States lightheadedness is much improved Offers no other complaints Denies any chest pain, dyspnea, nausea, vomiting, abdominal pain No rhythm issues on monitor Review of Systems Review of Systems: All systems reviewed & are unremarkable except as noted in Subjective Physical Exam Physical Exam: Physical Exam: Vitals signs as noted above General Appearance:Obese, no apparent distress Head: normocephalic, Atraumatic Eyes: normal inspection, EOMI Neck: supple, Trachea midline Respiratory/Chest: Normal breath sounds, CTA, No accessory muscle use Cardiovascular: S1, S2, No murmur Abdomen/GI:Soft, Non tender, Bowel sounds present Extremities/Musculoskeletal:normal inspection, no edema Neurologic/Psych:AAOX3, grossly no focal neurological deficits Skin: normal color, warm Results & Data Results & Data Vital Signs (Past 12 Hours) Vital Signs Temp Pulse Pulse Pulse Pulse Pulse Pulse 12/25/22 14:03 113 H 110 H 113 H 12/25/22 08:12 36.7 C 85 12/25/22 07:12 75 12/25/22 04:12 36.6 C 78 12/25/22 02:51 78 Pulse Resp Resp Resp Resp Resp BP 12/25/22 14:03 105 H 18 18 18 18 12/25/22 08:12 18 150/68 H 12/25/22 07:12 12/25/22 04:12 18 120/63 12/25/22 02:51 Pulse Ox Pulse Ox Pulse Ox Pulse Ox Pulse Ox O2 Del Method O2 Flow Rate 12/25/22 14:03 87 L 89 L 83 L 91 12/25/22 08:12 91 Nasal Cannula 2 12/25/22 07:12 12/25/22 04:12 95 Nasal Cannula 3 12/25/22 02:51 O2 Flow Rate O2 Flow Rate 12/25/22 14:03 2 3 12/25/22 08:12 12/25/22 07:12 12/25/22 04:12 12/25/22 02:51 Laboratory Results Short CBC 12/25/22 Range/Units 06:32 WBC 7.74 (4.8-10.8) K/ul Hgb 14.4 (12.0-16.0) g/dl Hct 43.8 (37.0-47.0) % Plt Count 217 (130-400) K/uL BMP 12/25/22 06:32 Sodium 139 Potassium 3.8 Chloride 101 Carbon Dioxide 32 BUN 11 Creatinine 0.50 L Glucose 127 H Calcium 9.2
--- NOTE | 2022-12-25 14:39 | Discharge Summary ---
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 Feels lightheaded with positional change, specifically when she bends down to reach for something. Is relieved at rest. Associated with nausea but no vomiting. No room spinning. History of vertigo in the past but that felt more like acute episodes and this feels more ongoing. Having light sensitivity more since cataracts surgery in 2020 but denies any other eye symptoms like decreased vision or double vision. Denies any previous diagnosis of hypoxia or chronic lung conditions such as asthma or COPD. Lifelong non-smoker. Recent O2 levels at doctor visits were 88-92%. History of operation on diaphragm is a 6-week-old but does not know additional information. Denies any issues with low oxygen since then. No fever, chills, recent illness, headache, chest pain, shortness of breath, wheezing, vomiting, abdominal pain, dysuria, diarrhea or constipation. Admission Exam Per Admitting Provider General Appearance:WD/WN, vitals as above, NAD, sitting up in bed, pleasant, conversing easily Head: normocephalic, atraumatic Eyes:normal inspection, PERRL, conjunctivae normal, anicteric sclerae ENT: external ear and nose normal, oropharynx normal Neck: normal visual inspection, trachea midline, no thyromegaly Respiratory:normal respiratory effort, decreased breath sounds bilateral bases L>R,no wheeze, rhonchi. No accessory muscle use Cardiovascular: regular rate, rhythm, no murmur, normal peripheral pulses, no BLE edema. Vessels: no JVD Chest: normal inspection of chest Abdomen/GI: normal bowel sounds, soft, nontender, no hepatosplenomegaly Extremities/Musculoskeletal: no cyanosis or clubbing, extremities motor strength 5/5 Neurologic: PERRL, EOMI, accommodation nl, no face palsy, no dysarthria, CN's II-XI intact bilaterally and moves all extremities Psychiatric:A+Ox3, euthymic affect Skin: no rashes, normal color, warm/dry Principal Diagnosis Lightheadedness Suspected restrictive lung disease causing hypoxia Pulmonary nodule Discharge Data Allergies Allergy/AdvReac Type Severity Reaction Status Date / Time codeine AdvReac Intermediate Nausea Unverified 07/13/19 14:30 Consultations 12/24/22 18:34 ED Decision to Admit Stat Procedures Performed Laboratory Results WBC 7.74 K/ul (4.8-10.8) 12/25/22 06:32 RBC 4.46 M/uL (4.20-5.40) 12/25/22 06:32 Hgb 14.4 g/dl (12.0-16.0) 12/25/22 06:32 Hct 43.8 % (37.0-47.0) 12/25/22 06:32 MCV 98.2 fL (80.0-100.0) 12/25/22 06:32 MCH 32.3 pg (25.0-34.0) 12/25/22 06:32 MCHC 32.9 g/dL (32.0-36.0) 12/25/22 06:32 RDW Std Deviation 49.8 fL (36.4-46.3) H 12/25/22 06:32 RDW Coeff of Hussein 13.7 % (11.5-14.5) 12/25/22 06:32 Plt Count 217 K/uL (130-400) 12/25/22 06:32 MPV 10.3 fL (9.4-12.4) 12/25/22 06:32 Immature Gran % (Auto) 0.2 % 12/24/22 12:55 Neut % (Auto) 68.9 % 12/24/22 12:55 Lymph % (Auto) 17.7 % 12/24/22 12:55 [place] % (Auto) 10.8 % 12/24/22 12:55 Eos % (Auto) 1.9 % 12/24/22 12:55 Baso % (Auto) 0.5 % 12/24/22 12:55 Neut # (Auto) 5.90 K/uL (1.40-6.50) 12/24/22 12:55 Lymph # (Auto) 1.51 K/uL (1.2-3.4) 12/24/22 12:55 [place] # (Auto) 0.92 K/uL (0.11-0.59) H 12/24/22 12:55 Eos # (Auto) 0.16 K/uL (0-0.50) 12/24/22 12:55 Baso # (Auto) 0.04 K/uL (0-0.2) 12/24/22 12:55 Immature Gran # (Auto) 0.02 K/uL (0.01-0.20) 12/24/22 12:55 PT 10.4 Seconds (9.0-12.0) 12/24/22 12:55 INR 0.9 (0.9-1.1) 12/24/22 12:55 APTT 25.8 Seconds (21.0-31.0) 12/24/22 12:55 PTT Ratio 0.9 12/24/22 12:55 ABG pH 7.44 (7.35-7.45) 12/24/22 15:55 ABG pCO2 47 mmHg (35-46) H 12/24/22 15:55 ABG pO2 94 mmHg (80-95) 12/24/22 15:55 ABG HCO3 32 mmol/L (19-24) H 12/24/22 15:55 ABG O2 Saturation 98.7 % (90-95) H 12/24/22 15:55 ABG Base Excess 6.6 mEq/L (-9-1.8) H 12/24/22 15:55 Jean-Claude Test Pos (Pos) 12/24/22 15:55 Oxygen Given 4L 12/24/22 15:55 Sodium 139 mmol/L (136-145) 12/25/22 06:32 Potassium 3.8 mmol/L (3.5-5.1) 12/25/22 06:32 Chloride 101 mmol/L (98-107) 12/25/22 06:32 Carbon Dioxide 32 mmol/L (21-32) 12/25/22 06:32 Anion Gap 6 (3-11) 12/25/22 06:32 BUN 11 mg/dl (6-23) 12/25/22 06:32 Creatinine 0.50 mg/dl (0.6-1.2) L 12/25/22 06:32 Est Cr Clr Drug Dosing 110.8 ml/min 12/25/22 06:32 Est GFR ( Amer) 112.1 ml/min 12/25/22 06:32 Est GFR (Non-Af Amer) 96.7 ml/min 12/25/22 06:32 BUN/Creatinine Ratio 22.0 (10-20) H 12/25/22 06:32 Glucose 127 mg/dl (70-99(Fasting)) H 12/25/22 06:32 POC Glucose 105 mg/dl (70-99) H 12/25/22 11:59 Calcium 9.2 mg/dl (8.6-10.3) 12/25/22 06:32 Total Bilirubin 0.6 mg/dl (0.2-1.0) 12/24/22 12:55 AST 18 U/L (13-39) 12/24/22 12:55 ALT 12 U/L (7-52) 12/24/22 12:55 Alkaline Phosphatase 46 U/L (34-104) 12/24/22 12:55 Troponin I High Sens 3.2 pg/ml (0-14) 12/24/22 12:55 Total Protein 8.6 gm/dl (6.0-8.3) H 12/24/22 12:55 Albumin 4.7 gm/dl (3.4-5.0) 12/24/22 12:55 Globulin 3.9 gm/dl (2.5-4.0) 12/24/22 12:55 Albumin/Globulin Ratio 1.2 (0.9-2) 12/24/22 12:55 Vitamin B12 610 pg/ml (180-914) 12/25/22 06:32 SARS-CoV-2, RNA, NAAT NEGATIVE (NEGATIVE) 12/24/22 Unknown Impressions Chest CTA 12/24/22 15:42 CT ANGIOGRAM OF THE CHEST CLINICAL HISTORY: Atypical chest pain. Dyspnea. COMPARISON STUDY: Chest x-ray dated 12/24/2022. TECHNIQUE: Following the IV administration of 116 cc of Optiray 350, CT angiogram of the chest was performed from the upper abdomen to the thoracic inlet utilizing the pulmonary embolus protocol. Images are reviewed in the axial, sagittal, and coronal planes. 3-D MIPS images are created and assessed. IV contrast was administered without complication. A dose lowering technique was utilized adhering to the principles of ALARA. CT DOSE: 1416.52 mGy.cm FINDINGS: Thyroid: Mildly enlarged and heterogeneous. Thoracic aorta: There is moderate atherosclerotic calcification of the thoracic aorta, which is normal in caliber and demonstrates standard 3-vessel arch anatomy. No dissection is seen. Pulmonary vasculature: The main pulmonary arteries are mildly dilated suggesting pulmonary artery hypertension. There are no filling defects identified in main, lobar, or proximal segmental pulmonary branches to suggest pulmonary embolus. Evaluation of the peripheral branches is degraded by motion artifact. Heart: The heart is mildly enlarged and without pericardial effusion. There are coronary artery calcifications. Lungs and pleural spaces: Evaluation of the lung parenchyma is degraded by motion artifact. There is atelectasis of the left lower lung. No airspace consolidation clinical history pneumonia or pleural effusion is identified. The trachea and central airways are clear. Scarring/atelectasis is also seen at the right lung base. There is a 1.3 cm right middle lobe nodule suggested on image #89. Mediastinum: There is no mediastinal lymphadenopathy. Mary: Clear. Axillae: There is no axillary lymphadenopathy. Upper abdomen: There is marked elevation of the left hemidiaphragm versus diaphragmatic herniation, with bowel contents filling the majority of the left hemithorax. This is radiographically unchanged dating back to at least 2019. There is diverticulosis of the visualized left colon. A normal spleen is not identified and there are large splenules in the left upper quadrant. These measure up to 4.5 cm. Skeletal structures: The skeletal structures are osteopenic. No lytic or blastic bony lesions are seen. There is chronic deformity of the left-sided ribs. Arthritic change is noted in the shoulders. There is a chronic-appearing compression deformity of T11. Spondylotic change is seen in the thoracic spine. IMPRESSION: 1. There is no evidence of pulmonary embolus in the main, lobar, or proximal segmental pulmonary arteries. Evaluation of the peripheral branches is compromised by motion artifact. 2. There is marked elevation of the left hemidiaphragm versus diaphragmatic defe ct/hernia with abdominal contents filling the lower thorax and atelectasis of the left lower lung. This is unchanged dating back to at least 2019. A normal spleen is not identified, there is deformity of the left-sided ribs, and there may have been previous left lower lobe resection. Correlation with the clinical and surgical history will be essential. 3. There is no airspace consolidation typical for pneumonia or pleural effusion. 4. A 1.3 cm right middle lobe nodule is suggested. Follow-up is recommended as per the Fleischner criteria. See below. 5. Mild cardiomegaly. 6. Additional findings as above. Please refer to below summary of Fleischner criteria recommendations for follow- up of incidental CT nodules (Megan Valentine, Guidelines for management of small pulmonary nodules detected on CT scans: A statement from the Fleischner Society, Radiology 237: [phone].) SOLID NODULES Solitary nodule size: <6 mm * low risk patients: no follow-up needed * high risk patients: optional CT at 12 months Solitary nodule size: 6-8 mm * low risk patients: follow-up at 6-12 months, then consider further follow-up at 18-24 months * high risk patients: initial follow-up CT at 6-12 months and then at 18-24 months if no change Solitary nodule size: >8 mm * either low or high risk patients - consider follow-up CT at 3 months, and/or CT-PET, and/or biopsy Multiple nodules size: <6 mm * low risk patients: no routine follow-up * high risk patients: optional CT at 12 months Multiple nodules size: 6-8 mm * low risk patients: follow-up at 3-6 months, then consider further follow-up at 18-24 months * high risk patients: follow-up at 3-6 months, then at 18-24 months if no change Multiple nodules size: >8 mm * low risk patients: follow-up at 3-6 months, then consider further follow-up at 18-24 months * high risk patients: follow-up at 3-6 months, then at 18-24 months if no change Note: newly detected indeterminate nodule in persons 35 years of age or older. * low risk patients: minimal or absent history of smoking and/or other known risk factors * high risk patients: history of smoking or of other known risk factors (e.g. first degree relative with lung cancer, or exposure to asbestos, radon, uranium) * if a nodule up to 8 mm is partly solid or is ground glass further follow-up is required after 24 months to exclude possible slow growing adenocarcinoma (KATE) SUBSOLID NODULES Solitary pure ground-glass nodule * nodule size <6 mm - no CT follow-up required * nodule size >=6 mm - follow-up CT at 6-12 months, then every 2 years until 5 years Solitary part-solid nodule * nodule size <6 mm - no CT follow-up required * nodule size >=6 mm - follow-up CT at 3-6 months. If unchanged, and solid component remains <6 mm, then annual follow-up for 5 years Multiple subsolid nodules * nodule size <6 mm - follow-up CT at 3-6 months, consider further follow-up at 2 and 4 years if stable * nodule size >=6 mm - follow-up CT at 3-6 months, subsequent management based on the most suspicious nodule(s) ACT 112: Positive. There are findings on this exam that require communication between the performing entity and the patient following Patient Test Result Information Act ([place] Act 112) guidelines. Electronically signed by: Adrian Ornelas M.D. 12/24/2022 6:15 PM Chest X-Ray 12/24/22 15:42 SINGLE VIEW CHEST CLINICAL HISTORY: Dyspnea. FINDINGS: An AP, portable, upright chest radiograph is compared to study dated 06/05/2019. The heart appears enlarged and noting atherosclerotic calcification of the thoracic aorta. The pulmonary vasculature is noncongested. Chronic interstitial thickening is similar to previous.. There is chronic elevation of the left hemidiaphragm which is similar to the 06/05/2019 examination. A left pleural effusion is not excluded. There is bibasilar scarring/atelectasis. No airspace consolidation is seen typical for pneumonia. No pneumothorax is seen. The skeletal structures are osteopenic. There are chronic/healed left-sided rib fractures. IMPRESSION: 1. Cardiomegaly with no acute cardiopulmonary abnormality identified. 2. There is chronic elevation of the left hemidiaphragm. A left pleural effusion is not excluded. Findings are unchanged from the 06/05/2019 examination. ACT 112: Negative or not required by law. Electronically signed by: Adrian Ornelas M.D. 12/24/2022 4:[address] 12/24/22 15:42 CT SCAN OF THE BRAIN WITHOUT IV CONTRAST CLINICAL HISTORY: Generalized weakness. COMPARISON STUDY: MRI of the brain dated 06/05/2019. TECHNIQUE: Unenhanced axial CT scan of the brain is performed from the vertex to the skull base. A dose lowering technique was utilized adhering to the principles of ALARA. FINDINGS: Brain parenchyma: There is age-related involutional change noting minimal microangiopathic disease. There is no hemorrhage, mass effect, or evidence of acute territorial ischemia by CT criteria. Gillis-white matter differentiation is preserved. No extra-axial fluid collection is seen. Ventricles, sulci, cisterns: Prominent secondary to involutional change. Intracranial vasculature: There is atherosclerotic calcification of the cavernous carotid arteries. Calvarium: Unremarkable. Sinuses and mastoids: The visualized paranasal sinuses are clear. The mastoid air cells are well pneumatized. Orbits: The bony orbits are grossly intact. IMPRESSION: There is no hemorrhage, mass effect, or evidence of acute territorial ischemia by CT criteria. ACT 112: Negative or not required by law. Electronically signed by: Adrian Ornelas M.D. 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 Noted to be hypoxic at 85% in ED, now 95% on 3L NC. No history of asthma, COPD, non-smoker. 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 Evaluation of the peripheral branches is compromised by motion artifact. There is marked elevation of the left hemidiaphragm versus diaphragmatic defect/hernia with abdominal contents filling the lower thorax and atelectasis of the left lower lung. This is unchanged dating back to at least 2019. A normal spleen is not identified, there is deformity of the left-sided ribs, and there may have been previous left lower lobe resection. Correlation with the clinical and surgical history will be essential. There is no airspace consolidation typical for pneumonia or pleural effusion. A 1.3 cm right middle lobe nodule is suggested. Follow-up is recommended as per the Fleischner criteria. See below. Mild cardiomegaly. --CT Head:There is no hemorrhage, mass effect, or evidence of acute territorial ischemia by CT criteria. --Normal Orthostatics --ECHO: EF 60 to 60%. No regional wall motion abnormality. Normal diastolic function. 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 BSG AC HS (7) Anxiety: Continue venlafaxine DVT Px: SQ Lovenox Code status: FULL CODE Total Time Total Time Spent Total Time Spent (In Minutes): 54 minutes Discharge Plan Discharge Items Patient Disposition: Home - Self-Care Reason For Visit: LIGHT HEADED, FATIGUE, NAUSEA Discharge Diagnosis: Lightheadedness Suspected restrictive lung disease causing hypoxia Pulmonary nodule Activity: Per Instructions section Exercise/Sports: Wait until after follow-up appointment Non-emergency contact: Primary Care Provider and Hearing Aid Consultant Call non-emergency contact if: you have any medication questions, your symptoms worsen, your pain is concerning for you and you have a fever Follow-up/Referrals: Solitario Grant MD [Primary Care Provider] - Diet: Carb Consistent or DM2 Addtl Attending Provider Instructions: Follow-up with your primary care physician Dr. Solitario Grant in 1 week as advised Follow-up with your sock examiner/cardiothoracic surgeon as advised. --- Use supplemental oxygen 3 L via nasal cannula with activity as advised. -- You are incidentally noted to have a lung nodule on CT scan. Follow-up with your sock examiner for further recommendations. Seek immediate medical attention if your symptoms reoccur or worsen Please take all medications as instructed on discharge list below. Please call if you have any questions or problems. You can reach a [facility] hospitalist on duty at [facility] 24 hours a day by calling [phone] Pending Studies at Discharge: No Stand-Alone Forms: My [facility], Smoking Cessation Medications and DC Order Prescriptions: Continued metformin [Glucophage] 500 mg tablet 500 mg PO BID venlafaxine [Effexor XR] 75 mg capsule,extended release 24hr 75 mg PO QAM aspirin 81 mg Tablet,Delayed Release (Dr/Ec) 81 mg PO QAM simvastatin [Zocor] 40 mg tablet 40 mg PO HS lisinopril-hydrochlorothiazide [Zestoretic] 10-12.5 mg tablet 0.5 tab PO HS albuterol sulfate [Ventolin HFA] 90 mcg/actuation HFA aerosol inhaler 1 - 2 puff INHALATION Q6H PRN (Reason: Shortness Of Breath Or Wheezing) cholecalciferol (vitamin D3) [Vitamin D3] 25 mcg (1,000 unit) Tablet 1,000 unit PO QAM acetaminophen [Tylenol Extra Strength] 500 mg Tablet 500 mg PO Q6H PRN (Reason: Pain) Discharge Orders: Discharge Order (Routine); Ordered 12/25/22 Ordered By: Pato Hoffman Admission Data Admit Date/Time: 12/24/22 19:52 Attending Provider: Pato Hoffman Admit Provider: Azam Ye Primary Care Provider: Solitario Grant Other Providers: Azam Ye
== END 2022-12-25 17:51 | disposition home or self-care (01) | DRG 206 ==
LOC: ED 12:18 → EDINP 19:52 → SUATTDRO 19:52 → 2N 12-25 01:47